=== PATIENT | male | born 1955 | race Caucasian/White ===

== ENCOUNTER 2020-12-13 07:37 | Day surgery (SDC) | payer OTHER, BC, SELFPAY ==
[~2020-12-13] VITALS: Ht 190.5 cm; Wt 86.2 kg
[2020-12-13] MEDS ORDERED: LIDOCAINE 2% 100 MG/5 ML UJET TP ONE ×2 (09:47→10:05)
[2020-12-13] MEDS ORDERED: fentaNYL citrate 0.05 MG/ML VIAL ONE (09:47)
[2020-12-13] MEDS ORDERED: SIMETHICONE 40 MG/0.6 ML PO PRN (10:10)
[2020-12-13] MEDS ORDERED: fentaNYL citrate 0.05 MG/ML VIAL IVP ONE (10:20)
[2020-12-13] MEDS ORDERED: SIMETHICONE 40 MG/0.6 ML ONE (13:12)
== END 2020-12-13 10:50 | disposition home or self-care (01) ==
LOC: MDS 07:37 → MMU 07:38 → MDS 10:50
PROVIDERS: ATTEND Internal Medicine Gastroenterology
DX: Z12.11 Encounter for screening for malignant neoplasm of colon (principal); D12.4 Benign neoplasm of descending colon; K57.30 Diverticulosis of large intestine without perforation or abscess without bleeding; E11.9 Type 2 diabetes mellitus without complications; N40.0 Benign prostatic hyperplasia without lower urinary tract symptoms; Z20.828 Contact with and (suspected) exposure to other viral communicable diseases; Z79.899 Other long term (current) drug therapy
CPT/HCPCS: 45385; J3010; U0003